=== PATIENT | male | born 1940 | race Caucasian/White ===

== ENCOUNTER 2025-10-08 12:39 | Outpatient (AMB) | payer MEDICARE, SELFPAY ==
--- OUTSIDE RECORDS SUMMARY | 2025-10-03 08:45 | XMS_ITS ---
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 Medications Medication SIG (Take, Route, Frequency, Duration) Notes Start Date End Date Status Rosuvastatin Calcium 40 MG Oral; Duration: 90 Days Active amLODIPine Besylate 5 MG Oral; Duration: 90 Days Active Ezetimibe 10 MG Oral; Duration: 90 Days Active Ammonium Lactate 12 % 1 application Exte rnally to affected areas of dry skin to feet except for between the toes Twice a day; Duration: 30 days Active Social History Tobacco Use: Social History Observation Description Date Details (start date - stop date) Never Smoker NA - NA Tobacco use other than smoking: Question Answer Notes Are you an other tobacco user? No Tobacco Control (Standard) Question Answer Notes Tobacco use: Nonsmoker Additional Findings: Tobacco non-user Current no nsmoker AUDIT-C (Standard) Question Answer Notes Did you have a drink contain ing alcohol in the past year? Yes How often did you have a dri nk containing alcohol in the past year? Daily or almost daily (4 points) How many drinks did you have on a typical day when you were drinking in the past year? 1 or 2 drinks (0 point) How often did you have six o r more drinks on one occasion in the past year? Less than monthly (1 point) Points 5 Interpretation Positive Vital Signs Height 5 ft 10 in in 10/03/2025 Weight 133 lbs 10/03/2025 BMI 19.08 kg/m2 10/03/2025 Blood pressure systolic 125 mm Hg 10/03/20 25 Blood pressure diastolic 70 mm Hg 025 Procedures Procedure Date Ordered Date Performed Result Body Sit e 19558-ZTKB SKIN LESIONS, 2 TO 4 10/03/2025 N/A [id number]-[id number] DYSTROPHIC NAILS ANY # 10/03/2025 N/A Encounters Encounter Location Date Provider Diagnosis [facility] [address] [place] [address] 10/03/2025 Lori Alejo Atherosclerosis of [place] artery of both lower extremities, with unspecified presence of clinical manifestation I70.203 Assessments Encounter Date Diagnosis (ICD Code) Assessment Notes Treatment Notes Treatment Clinical Notes Section Notes 10/03/2025 Atherosclerosis of [place] artery of both lower extremities, with unspecified presence of clinical manifestation (ICD-10 - I70.203) Plan Of Treatment Pending Test Test Name Order Date 60148-XVUD SKIN LESIONS, 2 TO 4 10/03/20 25 Y4058-[id number] DYSTROPHIC NAILS ANY # Next Appt Details Follow Up: prn, Reason: Provider Name:Lori Alejo , 01/23/2026 01:30:00 PM, [address] [place] [address], [id number], Procedure Notes * Category Sub-Category Detail Notes Keratoma Treatment Parring or Cutting o f Benign Hyperkeratotic Lesion(s) (-56) 2-4 Lesions - Due to the at risk nature of the patients medical condition as documented in the exam findings, performance of this keratoderma treatment is medically necessary as its management by an unskilled/untrained nonprofessional would put this patients foot and overall health at risk. Therefore, the benign hyperkeratotic lesions, ( 2 ) in total, locations as stated and described in the exam ( IPJ , TA , T5 ,), were pared, and/or cut utilizing a sterile 15 blade, tissue nippers, and/or power dremel instrumentation by the physician of record - [id number] Nail Reduction Nail Reduction (-27) Trimming o f all dystrophic nails - Due to the at risk nature of the patients medical condition as documented in the exam findings, performance of this nail treatment is medically necessary as its management by an unskilled/untrained nonprofessional would put this patients foot and overall health at risk. Therefore, the dystrophic nails, in locations as stated and described in the exam ( T1, T2, T3, T4,T6, T7, T8, T9, ), were debrided by the phisician of record to reduce/remove overall nail length and girth, by manual and electrical means with use of a nail nipper and/or dremel, to more viable healthy nail plate or bed tissue - G0127 Progress Notes * Sandeep HICKS LDOB:[birth year] (85 yo M)Acc No.[id number]:10/03/2025 Progress Note Patient: Sandeep BRAR Provider: Aroldo Alejo DPM :1940 A ge:85 Y S ex:Male Date:10/03/2025 Address:[address] [place], [place] [id number] Pcp:Lenny Burt Subjective: * Chief Complaints: * A t Risk FootcarePainful Nail(s) aggravated by shoes and causing difficulty standing/walking. * HPI: A t Risk footcare: Pt States Last PCP Visit: D ate: 1 11/24/2024 S kin problems: Pt States PCP Visit: D ate: 0 02/21/2025 * ROS: G eneral/Constitutional: Nausea d enies. V omiting d enies. H debbie Thirst d enies. L oss appetite d enies. C hills d enies. F atigue d enies.?Fever d enies. N ight Sweats d enies. U nexplained weight loss d enies. U nexplained weight gain d enies. H EENTM: Dentures a dmits. D izziness d enies. G lasses/contacts d enies. R etinopathy d enies. B lurred/double vision d enies. T MJ?denies. D ischarge/drainage d enies. I mplants d enies. S ore throat d enies. D ental implants d enies. H vicenta of hearing d enies. D ifficulty chewing/swallowing/speaking d enies. N ose bleeds d enies. S ore mouth d enies. ? R espiratory: On Oxygen d enies. P neumonia/pleurisy d enies.?Bronchitis d enies. E mphysema d enies. C oughing d enies. C ough blood?denies. S hortness of breath d enies. W heezing d enies. C ardiovascular: Pacemaker d enies. M RECORDS TECH d enies. W PW d enies. C HF d enies. H eart attack d enies. S eptal defect d enies. R apid beat d enies. C hest pain d enies. A trial Fib. d enies. M urmur/Palpitations d enies. G astrointestinal: Hemorrhoids d enies. S tomach/Abdominal pain d enies. D ark blood stool d enies. I rritable bowel d enies. C onstipation a dmits. D iarrhea d enies. H ematology: Swelling d enies. C lots d enies. V aricose Veins d enies. B ruising d enies. B leeding problem d enies. G enitourinary: Blood urine d enies. F requent/Painfu/urination/bladder control d enies. K idney stones d enies. I nfection (UTI) d enies. N ephropathy d enies. s ex trans dis (STD) d enies. P rostate a dmits. M usculoskeletal: Hammertoes d enies. B unions d enies. B ack Pain d enies. M uscle Cramps/ Resting d enies. M uscle cramps / walking d enies.?Generalized aches and pains a dmits. W eakness d enies. I nteg.: Barrientos d enies. S cars d enies. C orns/calluses?admits. I ngrown nails d enies. P ainful nails d enies. O pen Sores d enies. R ashes d enies. N eurologic: Difficulty sleeping d enies. B rain disorder d enies. N umbness d enies. B alance trouble d enies. C onfusion d enies. F ainting/blackouts d enies. T ingling d enies. T remors d enies. * Medical History: * Surgical History: S eed Implant- Prostate Cancer 2004colonoscopy hernia 10/04/24 * Hospitalization/Major Diagno stic Procedure: D enies Past Hospitalization * Family History: M other: . F ather: , diagnosed with Other malignant neoplasm of unspecified site. * Social History: T obacco Use: T obacco use other than smoking A re you an other tobacco user? N o Tobacco Control (Standard) T obacco use: N onsmoker A dditional Findings: Tobacco non-user C urrent nonsmoker D rugs/Alcohol: D rugs H ave you used drugs other than those for medical reasons in the past 12 months? N o M iscellaneous: C affeine: yes, frequency:, 2-3 cups per day. Children: no. Exercise: no. Marital status: . 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 D rug/Alcohol: A CHRIS-C (Standard) D id you have a drink containing alcohol in the past year? Y es H ow often did you have a drink containing alcohol in the past year? D aily or almost daily (4 points) H ow many drinks did you have on a typical day when you were drinking in the past year? 1 or 2 drinks (0 point) H ow often did you have six or more drinks on one occasion in the past year? L ess than monthly (1 point) P oints 5 I nterpretation P ositive * Medications: T akingRosuvastatin Calcium 40 MG Tablet Oral amLODIPine Besylate 5 MG Tablet Oral Ezetimibe 10 MG Tablet Oral Ammonium Lactate 12 % Cream 1 application Externally to affected areas of dry skin to feet except for between the toes Twice a day Medication List reviewed and reconciled with the patientTaking Rosuvastatin Calcium 40 MG Tablet Oral Taking amLODIPine Besylate 5 MG Tablet Oral Taking Ezetimibe 10 MG Tablet Oral Taking Ammonium Lactate 12 % Cream 1 application Externally to affected areas of dry skin to feet except for between the toes Twice a day Medication List reviewed and reconciled with the patient * Allergies: N .K.D.A.yes[Allergies Verified] Objective: * Vitals: H t: 5 ft 10 in, Wt:133, BMI: 19.08, Shoe size:8.5, BP:125/70mm Hg, Ht-cm: 177.8 cm, Wt-k.33 kg. * Examination: G eneral Examination: GENERAL APPEARANCE: Miranda cabezas a pleasant, alert, well nourished, well-developed, well hydrated individual, who demonstrates proper attention to hygiene/body habitus, and is in no acute distress, Pt serves as own historian for office visit today. ORIENTED: p erson, place, and time. V ascular: DP PULSES (B): 0/4, B/L. PT PULSES (B): , 0/4, B/L. CAPILLARY FILL TIME: delayed, all digits, B/L. TROPHIC CONDITION-TEXTURE/ELASTICITY/TURGOR/HAIR GROWTH (B):? decreased, B/L,with sparse to absent hair growth. TEMPERTURE GRADIENT (C): decreased, cool to cool, proximal to distal, B/L. PIGMENTATION: , pale, B/L. EDEMA (C): a bsent, B/L. CLAUDICATION (C): d enies, B/L. REST PAIN: d enies, B/L. N ails: NAILS are: E longated, overgrown, dystrophic , T 1, T2, T3, T4, T6, T7, T8, T9. D ermatologic: SKIN FINDINGS: S kin exam reveals Keratotic lesion(s) located at , IPJ , TA , T5 ,. Assessment: * Assessment: 1. A therosclerosis of [place] artery of both lower extremities, with unspecified presence of clinical manifestation - I70.203 (Primary) Plan: * Treatment: * Procedures: K eratoma Treatment: Parring or Cutting of Benign Hyperkeratotic Lesion(s) ( -56) 2-4 Lesions - Due to the at risk nature of the patients medical condition as documented in the exam findings, performance of this keratoderma treatment is medically necessary as its management by an unskilled/untrained nonprofessional would put this patients foot and overall health at risk. Therefore, the benign hyperkeratotic lesions, ( 2 ) in total, locations as stated and described in the exam ( IPJ , TA , T5 ,), were pared, and/or cut utilizing a sterile 15 blade, tissue nippers, and/or power dremel instrumentation by the physician of record - [id number]. N ail Reduction: Nail Reduction ( -27) Trimming of all dystrophic nails - Due to the at risk nature of the patients medical condition as documented in the exam findings, performance of this nail treatment is medically necessary as its management by an unskilled/untrained nonprofessional would put this patients foot and overall health at risk. Therefore, the dystrophic nails, in locations as stated and described in the exam ( T1, T2, T3, T4,T6, T7, T8, T9, ), were debrided by the phisician of record to reduce/remove overall nail length and girth, by manual and electrical means with use of a nail nipper and/or dremel, to more viable healthy nail plate or bed tissue - G0127. * Procedure Codes: 1 1056 TRIM SKIN LESIONS, 2 TO 4, Modifiers: Q8 , [id number] TRIMMING DYSTROPHIC NAILS ANY #, Modifiers: Q8 , XS * Follow Up: p rn * Images: * Sign off status: Completed true * Provider: Aroldo Alejo DPM Date: 12/04/2024 Generated for Tamia mojica/Mohini/Tino on: 12/09/2024 04:25 PM EST History and Physical Notes * HPI (History of Present Illness) Category Sub-Category Detail Notes Category Not es Skin problems Pt States PCP Visit: Date:: 02/21/2025 At Risk footcare Pt States Last PCP Visit: Date:: 09/23/20 25 Examination Category Sub-Category Detail Notes Category Not es Dermatologic SKIN FINDINGS: Skin exam reveal s Keratotic lesion(s) located at , IPJ , TA , T5 , VERRUCA: General Examination GENERAL APPEARANCE: Reveals a pleasant, alert, well nourished, well-developed, well hydrated individual, who demonstrates proper attention to hygiene/body habitus, and is in no acute distress, Pt serves as own historian for office visit today ORIENTED: person, place, and t jose l Vascular DP PULSES (B): 0/4, B/L PT PULSES (B): , 0/4, B/L CAPILLARY FILL TIME: delayed, all digits , B/L TEMPERTURE GRADIENT (C): decreased, cool to cool, proximal to distal, B/L TROPHIC CONDITION-TEXTURE/ELASTICITY/TURGOR/HAIR GROWTH (B): decreased, B/L,with sparse to absent brett r growth EDEMA (C): absent, B/L CLAUDICATION (C): denies, B/L REST PAIN: denies, B/L PIGMENTATION: , pale, B/L Nails NAILS are: Elongated, overg rown, dystrophic , T1, T2, T3, T4, T6, T7, T8, T9
--- NOTE | 2025-10-08 12:41 | MHC.OFFVIS ---
Intake Visit Reasons: 3m Allergies No Known Allergies (No Known Allergies*) Allergy (Unverified 10/08/25 12:49) Medication List - Last Reconciled 10/08/25 by Tana Ayoub CNP amlodipine 5 mg PO DAILY aspirin 81 mg PO DAILY ezetimibe 10 mg PO DAILY rosuvastatin 40 mg PO DAILY HPI Comments Details: He was doing okay. He had one ocular migraine on 08/20/2025 which lasted about 15-20 minutes, gets?blurring sparkles and blue dots in the vision without headache. No new stroke-like symptoms. Balance off at times, but no recent falls. Sleep was okay. He was caring for his with FTD who was getting dialysis 3 days/week. They do not have any children, and do not have any family in the area. Had surgery for inguinal hernia in 09/2024, took pain medication at night and woke early next morning to bring to dialysis and apparently blacked out and fell. No injuries and did not hit head.?No further episodes.? 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 He was dragging his right foot and at one point when he was using stairs going up or down stairs, he noticed that his right foot was not following his commands and some time he would stub his toes. There was no associated pain, numbness or tingling. He did not seek any medical attention and the next day noted that his both feet were weak and like there was weight attached to his legs and feet. He still did not seek any medical attention on the day after he noticed that his right hand was clumsy. Apparently, he was seen by a doctor in [facility] and was told to come to the emergency room. He has not noted any associated difficulty with speech, language, or confusion. He has a history of episodic visual phenomena for 15 minutes, characterized by sparkles and one white dot that starts in the right visual khan and move across to the left side over 20-30 min. period and then disappear. They're not associated with any speech problems, loss of vision, and numbness, tingling, or weakness. They're not associated or followed by any headaches. He had a prolonged ocular migraine with dots, stars, and floaters. [facility] Medical History (Updated 10/08/25 @ 12:49 by Tnaa Ayoub CNP) Hypertension Pancreatitis Hypercholesteremia Prostate cancer Cervical radiculitis Ocular migraine Stroke Surgical History (Updated 10/08/25 @ 12:48 by Tana Ayoub CNP) Hx of inguinal hernia surgery Review of Systems Const Denies chills, Denies daytime sleepiness, Denies difficulty sleeping, Denies fatigue, Denies fever(s), Denies frequent falls, Denies headache(s), Denies increased appetite, Denies poor appetite, Denies snoring, Denies weakness, Denies weight gain and Denies weight loss Eyes Denies loss of vision ENT Denies vertigo, Denies dizziness, Denies headache(s) and Denies neck pain Card Denies chest pain at rest, Denies chest pain with activity, Denies syncope, Denies leg edema, Denies palpitations, Denies dyspnea and Denies dyspnea on exertion Resp Denies cough, Denies dyspnea, Denies dyspnea on exertion and Denies snoring GI Denies abdominal pain, Denies constipation, Denies heartburn, Denies diarrhea and Denies nausea Denies urinary frequency, Denies urinary incontinence and Denies urinary urgency Musc Reports abnormal gait (balance difficulty), Denies back pain, Denies myalgias, Denies arthralgias, Denies neck pain, Denies numbness and Denies tingling Neuro Reports abnormal gait (balance difficulty), Denies vertigo, Denies dizziness, Denies syncope, Denies frequent falls, Denies headache(s), Denies lack of coordination, Denies loss of vision, Denies memory loss, Denies numbness, Denies Other visual disturbances, Denies restless legs, Denies seizure-like activity, Denies tingling, Denies paresthesias, Denies tremor(s) and Denies weakness Psych Reports anxiety, Denies depression, Denies auditory hallucinations, Denies memory loss and Denies visual hallucinations Endo Denies fatigue and Denies palpitations Physical Exam Const Other: General Appearance:? normal, in no acute distress. Heart:? S1, S2 normal, no murmurs. Lungs:? clear anteriorly and posteriorly. Musculoskeletal:? normal. Extremities:? no edema. Psych:? alert, oriented, cognitive function intact, cooperative with exam. Neuro Other: Abnormal Neurological Findings:?Slight truncal ataxia on tandem walking. Mental Status: alert and oriented X 3. Normal attention, orientation, memory, and affect. Cranial Nerves: Pupils are equal, round, and reactive to light. External ocular muscles are intact. Visual khan are full, no ptosis. Face is symmetrical, no facial weakness or droop. Facial sensations are normal. Tongue protrudes in midline. Palate elevates symmetrically. Shoulder shrugging is normal Motor Examination: Normal muscle tone, bulk and strength. No atrophy or fasciculations. No drift of the extended upper extremities. DTR 2+. Plantars are flexor. Sensory Exam: Normal light touch, temperature, pinprick, vibration, and joint-position sensations. Rhomberg sign is absent. Coordination: Slight truncal ataxia on tandem walking. Gait Exam: Slow and cautious. Cerebellar Signs: Qqjbci-dd-mccj is okay. Extrapyramidal System: No tremor, rigidity with normal facial expressions. No bradykinesia. No bradyphrenia. Normal arm swing and posture. No propulsion or retropulsion. Speech: Normal. Results Reviewed Results Reviewed: 02/29/2016: L pontine infarct Assessment & Plan Assessment & Plan (1) History of stroke: Code(s): Z86.73 - Personal history of transient ischemic attack (TIA), and cerebral infarction without residual deficits Category: Medical Plan: Continue statin and low dose aspirin. Control blood pressure. (2) Ocular migraine: Code(s): G43.109 - Migraine with aura, not intractable, without status migrainosus Category: Medical Plan: Ocular migraines were infrequent and no medication was needed at this time. Follow up in 1 year or sooner as needed. Coding Level of Care Code Est Pt Level 3 (26363) Diagnoses History of stroke Z86.73 Ocular migraine G43.109
--- OUTSIDE RECORDS SUMMARY | 2025-10-08 16:26 | XMS_ITS | Patient Health Record ---
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 Name Role Phone Lenny Burt Primary Care Provider Mahin AlejoSheliae Unavailable [phone] Allergies No Known Allergies Reason For Referral No Information Medications Medication SIG (Take, Route, Frequency, Duration) [...] Twice a day; Duration: 30 days Active Immunizations Vaccine Route Administration Date Status Comme nts Influenza Unknown 07/26/2025 Administered Social History Tobacco Use: Social History Observation [...] monthly (1 point) Points 5 Interpretation Positive Problems Problem Type SNOMED Code ICD Code Onset Dates Problem Status W/U Status Risk Notes Problem Bilateral atherosclerosis of arteries of lower limbs (disorder) ([id number] ) Atherosclerosis of jack[place] artery of both lower extremities, with unspecified presence of clinical manifestation (I70.203) Active confirmed Vital Signs Blood pressure diastolic 70 mm Hg 10/03/2025 Height 5 ft 10 in in 10/03/2025 Blood pressure systolic 125 mm Hg 10/03/2025 Weight 133 lbs 10/03/2025 BMI 19.08 kg/m2 10/03/2025 Procedures Procedure Date Ordered Date Performed Result Body Sit e 52089-UCFW SKIN LESIONS, 2 TO 4 01/03/2025 N/A P8623-QSXEJJCL DYSTROPHIC NAILS ANY # 01/03/2025 N/A 62173-ZHXA SKIN LESIONS, 2 TO 4 06/27/2025 N/A W5681-BLACUWJJ DYSTROPHIC NAILS ANY # 06/27/2025 N/A 96551-DECJ SKIN LESIONS, 2 TO 4 10/03/2025 N/A P6454-BZKTRRYJ DYSTROPHIC NAILS ANY # 10/03/2025 N/A Encounters Encounter Location Date Provider Diagnosis [facility] [address] 01/03/2025 Lori Black Atherosclerosis of jackson artery of both lower extremities, with unspecified presence of clinical manifestation I70.203 ; Plantar wart B07.0 ; Pain in right toe(s) M79.674 ; Pain in left toe(s) M79.675 ; Right foot pain M79.671 and Xerosis of skin L85.3 [facility] [address] 06/27/2025 Lori Black Atherosclerosis of jackson artery of both lower extremities, with unspecified presence of clinical manifestation I70.[address] [address] 10/03/2025 Lori Black Atherosclerosis of jackson artery of both lower extremities, with unspecified presence of clinical manifestation I70.203 Assessments Encounter Date Diagnosis (ICD Code) Assessment Notes Treatment Notes Treatment Clinical Notes Section Notes 01/03/2025 Plantar wart (ICD-10 - B07.0) 01/03/2025 Atherosclerosis of jackson artery of both lower extremities, with unspecified presence of clinical manifestation (ICD-10 - I70.203) 06/27/2025 Atherosclerosis of jackson artery of both lower extremities, with unspecified presence of clinical manifestation (ICD-10 - I70.203) 10/03/2025 Atherosclerosis of jackson artery of both lower extremities, with unspecified presence of clinical manifestation (ICD-10 - I70.203) 01/03/2025 Pain in right toe(s) (ICD-10 - M79.674) 01/03/2025 Pain in left toe(s) (ICD-10 - M79.675) 01/03/2025 Right foot pain (ICD-10 - M79.671) 01/03/2025 Xerosis of skin (ICD-10 - L85.3) Plan Of Treatment Pending Test Test Name Order Date 39364-Rxvu Destruction, -01/05/2024 60918-Jjsu Destruction, 1-07/05/2024 51378-NFJS SKIN LESIONS, 2 TO 4 01/04/20 25 91170-EHBQ SKIN LESIONS, 2 TO 4 06/27/20 25 78823-MEHA SKIN LESIONS, 2 TO 4 07/05/20 24 54489-UUGX SKIN LESIONS, 2 TO 4 01/05/20 24 38871-QNOI SKIN LESIONS, 2 TO 4 10/03/20 25 Q6672-CGQOPUYB DYSTROPHIC NAILS ANY # K4583-IRMHKOSV DYSTROPHIC NAILS ANY # Y4268-YEAPEGTL DYSTROPHIC NAILS ANY # M5576-FUIOYCWS DYSTROPHIC NAILS ANY # L1504-XREDFOKL DYSTROPHIC NAILS ANY # Next Appt Details Provider Name:Lori Alejo , 01/23/2026 01:30:00 PM, [address] [place], [address], Insurance Providers Payer Name Payer Address Payer Phone Subscriber Number Group Number Insured Name Patient Relationship to Insured Coverage Start Date Coverage End Date Medicare National Govt [facility] [address] [place] [address] [id number] Sandeep Oh Self - patient is the insured [facility] [address] [place] [address] [id number] NewnanGovind addisonnis Self - patient is the insured Medical (General) History Medical History History ICD Code Cancer High blood pressure Stroke Chicken pox Other hammer toe(s) (acquired), right fo ot M20.41 Arthritis of joint of lesser toe, right M19.071 Other hammer toe(s) (acquired), left jesse t M20.42 Arthritis of joint of lesser toe, left M 19.072 Plantar wart B07.0 Surgical History Surgery Date(Month/Year) Seed Implant- Prostate Cancer 2003 colonoscopy hernia 10/04/24
--- OUTSIDE RECORDS SUMMARY | 2025-10-08 16:26 | XMS_ITS | Patient Health Record ---
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 Name Role Phone Kings Rivera MD Primary Care Provider Unavaila Kieran Chacon Unavailable [phone] DILIP MONTELONGO Unavailable Unavailable Reason For Referral No Information Medications Medication SIG (Take, Route, Frequency, Duration) Notes Start Date End Date Status Colyte w Flavor Packs 240 GM Solution Reconstituted as directed Orally as directed; Duration: 1 day(s) 03/07/2015 Active Aspirin 81 MG Tablet Chewable 1 tablet Orally Once a day Active Pravastatin Sodium 80 MG Tablet 1 tablet Orally Once a day Active Immunizations Vaccine Route Administration Date Status Comme nts Flu vaccine no Preserv 3 and > Unknown 07/31/2014 Admin istered Social History Social History Additional Details Category Social Info Options Details Miscellaneous: Marital status: Occupation: Retired Section Notes: Nonsmoker; 3-4 beers QD Problems Problem Type SNOMED Code ICD Code Onset Dates Problem Status W/U Status Risk Notes Problem Blood in stool (461823063) Blood in stool (578.1) Active confirmed Problem Feces contents abnormal (423666093) Heme + stool (792.1) Active confirmed Plan Of Treatment Future Test Test Name Order Date COLONOSCOPY 03/07/2015 Insurance Providers Payer Name Payer Address Payer Phone Subscriber Number Group Number Insured Name Patient Relationship to Insured Coverage Start Date Coverage End Date [place] [address] [place] [address] [phone] [id number] AMANDA HICKS Self - patient is the insured [employer] CLAIMS [address] [place] [address] [id number] FABIOLA AMANDA Self - patient is the insured Medical (General) History Medical History History ICD Code Prostate cancer as below Hyperlipidemia Denies NV,DM,CVA,Lung disease,renal dise ase Colonoscopy in 08/[address] Salgado-emma. except for internal and external hemorrhoids Surgical History Surgery Date(Month/Year) Left inguinal hernia repair Radioactive seed implant in prostate for prostate cancer in 2003
== END 2025-10-08 13:04 | disposition home or self-care (01) ==
PROVIDERS: PCP Nurse Practitioner; Referring Provider Nurse Practitioner; Visit Provider Registered Nurse
DX: Z86.73 Personal history of transient ischemic attack (TIA), and cerebral infarction without residual deficits (principal); G43.109 Migraine with aura, not intractable, without status migrainosus
CPT/HCPCS: 99213

== ENCOUNTER → 2025-10-08 12:39 | Outpatient (BNVA) | payer MEDICARE, SELFPAY | PROVIDERS: PCP Nurse Practitioner; Referring Provider Nurse Practitioner; Visit Provider Registered Nurse | DX: G43.109 Migraine with aura, not intractable, without status migrainosus (principal); Z86.73 Personal history of transient ischemic attack (TIA), and cerebral infarction without residual deficits | CPT/HCPCS: 99212 ==